=== PATIENT | male | born 1980 | race Caucasian/White ===

== ENCOUNTER 2016-05-30 18:42 | Emergency (ER) | payer OTHER ==
[~2016-05-30] VITALS: Ht 172.7 cm; Wt 90.7 kg
[~2016-05-30 18:42] MED LIST: IBUPROFEN800 M1 PO
[2016-05-30 19:25] LABS: ABSOLUTE BASOPHIL COUNT 0 /CUMM (0.0-0.2); ABSOLUTE EOSINOPHIL COUNT 0.1 /CUMM (0.0-0.7); ABSOLUTE GRANULOCYTE CT 7.6 /CUMM (1.4-6.5); ABSOLUTE LYMPH COUNT 3.1 /CUMM (1.2-3.4); ABSOLUTE MONOCYTE COUNT 0.6 /CUMM (0.10-0.60); BASOPHIL % 0.4 % (0.0-2.0); EOSINOPHIL % 1.1 % (0-5); HEMATOCRIT 40.9 % (42-52); MEAN CORPUSCULAR HGB 29.9 PG (27.0-31.0); MEAN CORPUSCULAR HGB CONC 33.2 G/DL (33.0-37.0); MEAN PLATELET VOLUME 7.9 FL (7.4-10.4); PLATELET COUNT 306 /CUMM (130-400); RBC DISTRIBUTION WIDTH 12.5 % (11.5-14.5); RED BLOOD CELL CT 4.54 /CUMM (4.70-6.10); WHITE BLOOD CELL COUNT 11.5 /CUMM (4.8-10.8)
--- NOTE | 2016-05-30 19:25 | ED HEADACHE COMPLAINT ---
History of Present Illness General Chief Complaint: Headache Stated Complaint: WARD Source: patient Exam Limitations: no limitations Vital Signs & Intake/Output Vital Signs & Intake/Output Vital Signs Date Time Temp Pulse Resp B/P Pulse O2 O2 Flow FiO2 Ox Delivery Rate 05/30 2026 96.2 91 18 107/57 97 Room Air Allergies Coded Allergies: NO KNOWN ALLERGIES (06/13/15) Reconcile Medications Aspirin (Aspirin*) 325 MG TABLET 3 TAB PO ONCE HEADACHE (Reported) Butalb/Acetaminophen/Caffeine (Fioricet 50-300-40 MG Capsule) 50 MG-300 MG-40 MG CAPSULE 1 TAB PO Q8 PRN MIGRAINE Triage Note: RECEIVED 35 YO MALE WITH HX OF MIGRAINES C/O SEVERE HEADACHE BEHIND EYES AND FOREHEAD, STARTED THIS AM WITH DIZZINESS, NAUSEA. PT TOOK 325 MG ASPIRIN PO ABOUT 2 HOURS AGO WITH NO EFFECT. Triage Nurses Notes Reviewed? yes HPI: This patient is a 35-year-old male with a past medical history including migraine headaches who presented to the emergency department today for evaluation of headache. The patient reported that the headache began this afternoon and has been constant since onset. The pain gets up to a 10 out of 10 , sharp, and located across his forehead. He reported that sometimes it radiates to behind both of his eyes. He reported that hurts to open his eyes and he is sensitive to light. No palliative factors. He tried taking 325 mg of aspirin without any effect. He reported that usually his migraine headaches are resolved with aspirin or Motrin. He reported that he was medication for his migraines as a child, but not recently. The patient denied any blurry vision or auras. He denied any fevers, chest pain, difficulty breathing, neck pain, abdominal pain, or vomiting. He did report nausea. Past History Travel History Traveled to [place] past 21 day No Medical History Any Pertinent Medical History? see below for history Neurological: migraine EENT: NONE Cardiovascular: NONE Respiratory: NONE Gastrointestinal: NONE Hepatic: NONE Renal: NONE Musculoskeletal: NONE Psychiatric: NONE Endocrine: NONE Surgical History Surgical History: N Psychosocial History What is your primary language Solomon Islander Tobacco Use: Never used Family History Hx Contributory? No Review of Systems Review of Systems Constitutional: Reports: no symptoms. Eyes: Reports: see HPI. Ears, Nose, Throat, Mouth: Reports: no symptoms. Respiratory: Reports: no symptoms. Cardiovascular: Reports: no symptoms. Gastrointestinal/Abdominal: Reports: see HPI. Genitourinary: Reports: no symptoms. Musculoskeletal: Reports: no symptoms. Skin: Reports: no symptoms. Neurological/Psychological: Reports: see HPI. Endocrine: Reports: no symptoms. All Other Systems: Reviewed and Negative Physical Exam Physical Exam Cranial Nerves: normal hearing, normal speech, PERRL Comments: Well-developed well-nourished person in mild distress HEENT: Normal EENT exam, head normocephalic/atraumatic, mild tenderness to palpation over the forehead. No temporal pain on palpation, moist mucous membranes PERRLA bilaterally. EOMI bilaterally Neck: Supple. No midline tenderness Back: Normal gait Cardiovascular: Regular rate and rhythm with no murmurs Respiratory: No respiratory distress. Speaking sentences Extremity: Normal and equal pulses Neuro: Alert oriented x3, cranial nerves II through XII grossly intact. No facial droop. No unilateral weakness. No aphasia Skin: No appreciable rash on exposed skin, skin is warm and dry. Psych: Mood and affect is normal Core Measures Severe Sepsis Present: No Septic Shock Present: No Progress Differential Diagnosis: carotid dissection, cav sinus thromb, cluster WARD, encephalitis, IC mass/tumor, intracranial Hem., migraine WARD, sinusitis, SSS thrombosis, subarach. Hem., tension WARD, temporal arteritis, TMJ syndrome, viral cephalgia Plan of Care: Orders Procedure Date/time Status [facility] SED RATE 05/30 1899 Active COMPREHENSIVE METABOLIC PANEL 05/30 1899 Complete CBC WITHOUT DIFFERENTIAL 05/30 1899 Active Current Medications Sig/Liza Start time Last Medication Dose Stop Time Status Admin Promethazine HCl 50 MG ONCE ONE 05/30 1899 CAN (Phenergen) 05/30 1900 Laboratory Tests 05/30/161913: Anion Gap 11, Estimated GFR > 60, BUN/Creatinine Ratio 18.8, Glucose 119 H, Calcium 10.1, Total Bilirubin 0.8, AST 30, ALT 44, Alkaline Phosphatase 62, Total Protein 7.5, Albumin 4.8, Globulin 2.7, Albumin/Globulin Ratio 1.8, CBC w Diff NO MAN DIFF REQ, RBC 4.54 L, MCV 90.0, MCH 29.9, RDW 12.5, MPV 7.9, Gran % 66.0, Lymphocytes % 27.0, Monocytes % 5.5, Eosinophils % 1.1, Basophils % 0.4, Absolute Granulocytes 7.6 H, Absolute Lymphocytes 3.1, Absolute Monocytes 0.6, Absolute Eosinophils 0.1, Absolute Basophils 0, PUBS MCHC 33.2, ESR Westergren Pending Diagnostic Imaging: Viewed by Me: CT Scan. Discussed w/RAD: CT Scan. Radiology Impression: PATIENT: WILBERT ROBERTS JR PRESENT AGE: 35 PATIENT ACCOUNT NO: [id number] : 82 LOCATION: [facility] ORDERING PHYSICIAN: ROBSON DUNN PA-C SERVICE DATE: 05/30/16 EXAM TYPE: CAT - CT HEAD WO IV CONTRAST EXAMINATION: CT HEAD WITHOUT CONTRAST CLINICAL INFORMATION: Intracranial hemorrhage. Mass. COMPARISON: None TECHNIQUE: Contiguous axial imaging was performed from the skull base to vertex without intravenous administration of contrast. DLP: 600 mGy-cm FINDINGS: There is no evidence of acute intracranial hemorrhage or territorial infarction. No abnormal mass effect or midline shift is seen. Wayne to white matter differentiation is well preserved. No extra-axial fluid collections are identified. The ventricles are normal in size. There is no abnormal attenuation within the brain parenchyma. The osseous structures and soft tissues are normal. There is mild mucosal thickening of the ethmoid sinuses. IMPRESSION: No acute intracranial pathology. No hemorrhage or mass DICTATED BY: SHIKHA TAYLOR MD DATE/TIME DICTATED:05/30/162001 BUSINESS ACCOUNT EXECUTIVE:JOSEPHINE DATE/TIME TRANSCRIBED:2001 CONFIDENTIAL, DO NOT COPY WITHOUT APPROPRIATE AUTHORIZATION. < Electronically signed in Other Vendor System> SIGNED BY: SHIKHA TAYLOR MD 05/30/162007 Comments: 05/30/2016 8:13:11 PM: I was at the patient's bedside for re-evaluation. Reported that pain is down to a 2 out of 10. Nausea has resolved. CT unremarkable. Departure Departure Disposition: HOME OR SELF CARE Condition: Stable Clinical Impression Primary Impression: Migraine Qualifiers: Migraine type: without aura Status migrainosus presence: without status migrainosus Intractability: not intractable Qualified Code: G43.009 - Migraine without aura, not intractable, without status migrainosus Referrals: BETO CODY MD PATIENT HAS NO PRIMARY CARE DR (PCP/Family) Additional Instructions: Take medication for migraine as prescribed. Rest and be sure to stay hydrated. Please follow-up with the neurologist whose information has been provided to you in this packet for any persistent symptoms. Return for any worsening symptoms or concerns. Departure Forms: Customer Survey General Discharge Information Prescriptions: Current Visit Scripts Butalb/Acetaminophen/Caffeine (Fioricet 50-300-40 MG Capsule) 1 TAB PO Q8 PRN MIGRAINE #10 TAB
[2016-05-30] MEDS ORDERED: ASPIRIN325 M2 PO (19:46)
--- NOTE | 2016-05-30 20:08 | CT SCAN REPORT ---
EXAMINATION: CT HEAD WITHOUT CONTRAST CLINICAL INFORMATION: Intracranial hemorrhage. Mass. COMPARISON: None TECHNIQUE: Contiguous axial imaging was performed from the skull base to vertex without intravenous administration of contrast. DLP: 600 mGy-cm FINDINGS: There is no evidence of acute intracranial hemorrhage or territorial infarction. No abnormal mass effect or midline shift is seen. Wayne to white matter differentiation is well preserved. No extra-axial fluid collections are identified. The ventricles are normal in size. There is no abnormal attenuation within the brain parenchyma. The osseous structures and soft tissues are normal. There is mild mucosal thickening of the ethmoid sinuses. IMPRESSION: No acute intracranial pathology. No hemorrhage or mass
[2016-05-30 20:27] VITALS: BP 107/57
[2016-05-30] MEDS ORDERED: FIORICET 50-301 EACH PO (20:56)
== END 2016-05-30 21:11 ==
LOC: ERH 18:42
PROVIDERS: Physician Assistant
DX: G43.909 Migraine, unspecified, not intractable, without status migrainosus (principal)
CPT/HCPCS: 96374; 96375; J1200; J1885; J2550

== ENCOUNTER 2016-07-04 16:43 | Emergency (ER) | payer OTHER ==
[~2016-07-04] VITALS: Ht 170.2 cm; Wt 90.7 kg
[~2016-07-04 16:43] MED LIST changes: +ASPIRIN325 M2 PO; +FIORICET 50-301 EACH PO
[2016-07-04 17:20] VITALS: BP 144/91
[2016-07-04] MEDS ORDERED: MULTI-DAY VITA1 EACH PO (19:09)
--- NOTE | 2016-07-04 19:17 | ED UPPER/LOWER EXTREMITY COMPL ---
History of Present Illness General Chief Complaint: Hand or Wrist Injury Stated Complaint: BILAATERAL WRIST PAIN Source: patient Exam Limitations: no limitations Vital Signs & Intake/Output Vital Signs & Intake/Output Vital Signs Date Time Temp Pulse Resp B/P B/P Pulse O2 O2 Flow FiO2 Mean Ox Delivery Rate 07/04 1720 98.4 74 16 144/91 98 Room Air Allergies Coded Allergies: NO KNOWN ALLERGIES (06/13/15) Reconcile Medications Ketorolac Tromethamine 10 MG TABLET 1 TAB PO TID PRN PAIN RECEIVED IM IN ER Multivitamin (Multi-Day Vitamins) 1 EACH TABLET 1 TAB PO DAILY SUPPLEMENT ( Reported) Triage Note: TRIAGE: BILATERAL WRIST PAIN L>R SHOOTING IN NATURE, UNABLE TO MAKE A FIST. STATES HE TRIED TO REST IT THU AND THURSDAY AND TODAY AT WORK IT GOT MUCH WORSE. PT DRIVES TRUCKS AND LIFTS HEAVY ITEMS. DENIES INJURY. MEDICATED WITH MOTRIN IN TRIAGE. Triage Nurses Notes Reviewed? yes Onset: Gradual Duration: getting worse Timing: recent history Severity: severe Severity Numbers: 7 Method of Injury: unknown HPI: Patient is a 35-year-old male who presents to emergency room with a one week history of intermittent bilateral wrist pain where he denies any mechanism of injury he stated that this week wrist movements made worse however today he states that gripping now bothers his wrist. Patient denies any elbow pain paresthesia. 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 (BETO RITCHIE) Past History Travel History Traveled to [place] past 21 day No Medical History Any Pertinent Medical History? see below for history Neurological: migraine EENT: NONE Cardiovascular: NONE Respiratory: NONE Gastrointestinal: NONE Hepatic: NONE Renal: NONE Musculoskeletal: NONE Psychiatric: NONE Endocrine: NONE Surgical History Surgical History: non-contributory, N Psychosocial History What is your primary language Albanian Tobacco Use: Quit >30 days ago ETOH Use: denies use Illicit Drug Use: denies illicit drug use Family History Hx Contributory? No (BETO RITCHIE) Review of Systems Review of Systems Constitutional: Reports: no symptoms. EENTM: Reports: no symptoms. Respiratory: Reports: no symptoms. Cardiovascular: Reports: no symptoms. Gastrointestinal/Abdominal: Reports: no symptoms. Genitourinary: Reports: no symptoms. Musculoskeletal: Reports: see HPI, joint pain, muscle pain. Skin: Reports: no symptoms. Neurological/Psychological: Reports: no symptoms. Hematologic/Endocrine: Reports: no symptoms. Immunological: Reports: no symptoms. All Other Systems: Reviewed and Negative (BETO RITCHIE) Physical Exam Physical Exam General Appearance: no apparent distress, alert, comfortable Neurologic/Tendon: normal sensation, normal motor functions, normal tendon functions, responds to pain, no evidence tendon injury, no pulse deficit Skin: intact, normal color, warm/dry Comments: Well-developed well-nourished no apparent distress. HEENT: Atraumatic, extraocular motion intact Neck: Supple, no lymphadenopathy Back: Nontender Respiratory: No respiratory distress Extremities: Bilateral elbow-normal section nontender full active range of motion Bilateral wrist normal inspection generalized point tenderness noted decreased active range of motion noted Radial pulse +2 5/5 resisted range of motion with flexion extension of wrist with mild pain Right hand is nontender Right-left upper extremity dermatomes intact Negative Phalen sign Neuro: Alert and oriented x3 Psych: Mood affect normal, normal memory normal judgment. (BETO RITCHIE) Progress Differential Diagnosis: arterial insufficiency, compartment syndrome, contusion, dislocation, DVT, fracture, gout, septic arthritis, sprain, tendon injury Plan of Care: Orders Procedure Date/time Status Durable Medical Equipment 07/04 1937 Active Current Medications Sig/Liza Start time Last Medication Dose Stop Time Status Admin Ketorolac 30 MG ONCE ONE 07/04 1944 CAN Tromethamine 07/04 1945 (Toradol) Patient denies any mechanism of injury and there is no suspicion of fracture at this time in which no emergent orienting of x-rays for the patient currently. Patient has concerns of muscular strain of wrist in which he was put in bilateral wrist splints pre-and post-neurovascular was intact Patient was strongly advised to follow-up with discharge junctions and plan and he will comply (BETO RITCHIE) Departure Departure Disposition: HOME OR SELF CARE Condition: Stable Clinical Impression Primary Impression: Bilateral wrist pain Referrals: SARAH BEE,SUYAPA PATIENT HAS NO PRIMARY CARE DR (PCP/Family) Additional Instructions: As discussed begin icing the area directly 20 minutes every 2 hours. Begin the prescription and ketorolac for pain and inflammation. Begin using the wrist splint and taken move YOUR wrist without pain. If symptoms worsen return to emergency room. Prescriptions waiting a [facility] pharmacy. If no better in 5 days follow-up with orthopedic DR. SMITH Departure Forms: Customer Survey General Discharge Information Prescriptions: Current Visit Scripts Ketorolac Tromethamine 1 TAB PO TID PRN PAIN #15 TAB RECEIVED IM IN ER (RIZWAN SKINNER,BETO) PA/[employer] Co-Sign Statement Statement: ED Attending supervision documentation- [] I saw and evaluated the patient. I have also reviewed all the pertinent lab results and diagnostic results. I agree with the findings and the plan of care as documented in the PA's/[employer]'s documentation. [x] I have reviewed the ED Record and agree with the PA's/[employer]'s documentation. [] Additions or exceptions (if any) to the PAs/[employer]'s note and plan are summarized below: [] (MELISSA BEE,EMMA Mroa)
[2016-07-04] MEDS ORDERED: KETOROLAC TROME10 M1 PO (19:37)
== END 2016-07-04 20:02 ==
LOC: ERH 16:43
DX: M25.531 Pain in right wrist (principal); M25.532 Pain in left wrist
CPT/HCPCS: 96372; J1885

== ENCOUNTER 2017-04-29 16:44 | Emergency (ER) | payer OTHER ==
[~2017-04-29] VITALS: Ht 170.2 cm; Wt 90.7 kg
[~2017-04-29 16:44] MED LIST changes: +KETOROLAC TROME10 M1 PO; +MULTI-DAY VITA1 EACH PO
--- NOTE | 2017-04-29 18:15 | RADIOLOGY REPORT ---
EXAMINATION: 3 views of the left hand CLINICAL INFORMATION: Crush injury to the left fifth digit. COMPARISON: None available. FINDINGS: Possible nondisplaced fracture involving the distal aspect of the fifth distal phalangeal tuft, best seen on the oblique and frontal views. There is adjacent soft tissue swelling. No additional fractures. No radiopaque foreign bodies. IMPRESSION: Possible nondisplaced fracture involving the distal aspect of the fifth distal phalangeal tuft, best seen on the oblique and frontal views. There is adjacent soft tissue swelling.
--- NOTE | 2017-04-29 18:46 | ED HAND/WRIST INJURY COMPLAINT ---
History of Present Illness General Chief Complaint: Hand or Wrist Injury Stated Complaint: L PINKY INJURY Source: patient Exam Limitations: no limitations Vital Signs & Intake/Output Vital Signs & Intake/Output Vital Signs Date Time Temp Pulse Resp B/P B/P Pulse O2 O2 Flow FiO2 Mean Ox Delivery Rate 04/29 1653 98.6 67 18 146/97 98 Room Air Allergies Coded Allergies: NO KNOWN ALLERGIES (06/13/15) Reconcile Medications Cephalexin (Keflex) 500 MG CAPSULE 1 CAP PO TID CELLULITIS Ketorolac Tromethamine 10 MG TABLET 1 TAB PO TID PRN PAIN RECEIVED IM IN ER Multivitamin (Multi-Day Vitamins) 1 EACH TABLET 1 TAB PO DAILY SUPPLEMENT ( Reported) Triage Note: 36 YO MALE TO TRIAGE WITH INJURY TO PINKY ON L HAND. STATES HE WAS WORKING ON A BRIAN SYSTEM IN HIS CAR WHEN HIS FINGER GOT STUCK AND CRUSHED. NOTED WITH NAIL COMING OFF, BLEEDING CONTROLLED. UNSURE OF LAST TETANUS. Triage Nurses Notes Reviewed? yes Occurred: just prior to arrival Duration: hour(s): (2), constant, continues in ED Timing: single episode today Injury Environment: street Severity: mild, moderate Severity Numbers: 7 Pain/Injury Location: Left: 5th finger. Context: crush No Modifying Factors: none Associated Symptoms: swelling HPI: 36-year-old male with no past medical history presents evaluation of pain swelling in his left fifth digit. Patient states that the finger was crushed between 2 metal objects. The distal segment of the finger was infected. He does report damage to the nail. There was mild bleeding. He is up-to-date on tetanus. No numbness or tingling. Pain is worse with movement or touching the area. No other injuries. He rates pain as a 7 or 8 out of 10. No medicine for pain. (Carlos Eller) Past History Travel History Traveled to [place] past 21 day No Medical History Any Pertinent Medical History? see below for history Neurological: migraine EENT: NONE Cardiovascular: NONE Respiratory: NONE Gastrointestinal: NONE Hepatic: NONE Renal: NONE Musculoskeletal: NONE Psychiatric: NONE Endocrine: NONE Surgical History Surgical History: non-contributory, N Psychosocial History What is your primary language Maori Tobacco Use: Never used Family History Hx Contributory? No (Carlos Eller) Review of Systems Review of Systems Constitutional: Reports: no symptoms. EENTM: Reports: no symptoms. Respiratory: Reports: no symptoms. Cardiovascular: Reports: no symptoms. GI: Reports: no symptoms. Genitourinary: Reports: no symptoms. Musculoskeletal: Reports: joint pain, joint swelling. Skin: Reports: no symptoms. Neurological/Psychological: Reports: no symptoms. Hematologic/Endocrine: Reports: no symptoms. Immunologic/Allergic: Reports: no symptoms. All Other Systems: Reviewed and Negative (Carlos Eller) Physical Exam Physical Exam General Appearance: well developed/nourished, no apparent distress, alert, awake Head: atraumatic, normal appearance Eyes: Bilateral: normal appearance, EOMI. Ears, Nose, Throat: hearing grossly normal Neck: normal inspection, full range of motion Cardiovascular/Respiratory: no respiratory distress Elbow Left: normal range of motion, normal inspection Elbow Right: normal range of motion, normal inspection Forearm Left: normal range of motion, normal inspection Forearm Right: normal range of motion, normal inspection Wrist Left: normal range of motion, normal inspection Wrist Right: normal range of motion, normal inspection Hand Left: nail injury, evidence of injury, swelling, tender, 5th finger, the left fifth digit there is a crush injury to the distal segment. The nail has a horizontal crack running through the entire length of the nail. Minimal active bleeding. The area is tender to palpation. Range of motion of the distal segment is reduced. Neurovascular supply is intact. Full range of motion of the remaining fingers and segments. No subungual hematoma Hand Right: normal inspection, normal range of motion Neurologic/Tendon: normal sensation, normal motor functions, normal tendon functions, responds to pain, no evidence tendon injury, no pulse deficit Skin: intact, normal color, warm/dry (Carlos Eller) Progress Differential Diagnosis: contusion, dislocation, fracture, paronychia, sprain Plan of Care: Patient seen and evaluated. He suffered a crush injury to the distal segment of the left fifth digit. There is damage to the nail. No subungual hematoma or nail bed laceration appreciated. The area was cleaned with Betadine and sterile water. Xeroform dressing placed. Splint applied. Patient will be covered with cephalexin. He is up-to-date on tetanus. Keep the area clean and dry change dressing daily. Follow-up with primary care doctor/orthopedics for a wound check in 3 days. Discussed return precautions in detail. Patient appears well he agrees the plan. Diagnostic Imaging: Viewed by Me: Radiology Read. Discussed w/RAD: Radiology Read. Radiology Impression: PATIENT: WILBERT ROBERTS JR PRESENT AGE: 36 PATIENT ACCOUNT NO: [id number] : 82 LOCATION: [facility] ORDERING PHYSICIAN: Carlos SKINNER SERVICE DATE: 04/29/17 EXAM TYPE: RAD - XRY-HAND, LEFT EXAMINATION: 3 views of the left hand CLINICAL INFORMATION: Crush injury to the left fifth digit. COMPARISON: None available. FINDINGS: Possible nondisplaced fracture involving the distal aspect of the fifth distal phalangeal tuft, best seen on the oblique and frontal views. There is adjacent soft tissue swelling. No additional fractures. No radiopaque foreign bodies. IMPRESSION: Possible nondisplaced fracture involving the distal aspect of the fifth distal phalangeal tuft, best seen on the oblique and frontal views. There is adjacent soft tissue swelling. DICTATED BY: Radhames Mccabe MD DATE/TIME DICTATED:04/29/171808 CONTRACTS ATTORNEY:JOSEPHINE DATE/TIME TRANSCRIBED:1808 CONFIDENTIAL, DO NOT COPY WITHOUT APPROPRIATE AUTHORIZATION. < Electronically signed in Other Vendor System> SIGNED BY: Radhames Mccabe MD 04/29/171814 (Carlos Eller) Departure Departure Disposition: HOME OR SELF CARE Condition: Stable Clinical Impression Primary Impression: Finger fracture Qualifiers: Encounter type: initial encounter Finger: little finger Fracture type: open Phalanx: distal Fracture alignment: nondisplaced Laterality: left Qualified Code: S62.667B - Nondisplaced fracture of distal phalanx of left little finger, initial encounter for open fracture Referrals: Rashida BEE,Harpreet Lee (PCP/Family) Additional Instructions: Keep the area clean and dry. Tylenol ibuprofen for pain. Wear splint at all times. Change dressing once daily. Take antibiotics as directed for the full course. Follow-up in 3 days for a wound check. Return sooner with signs of infection like redness swelling discharge or pain. Departure Forms: Customer Survey General Discharge Information Prescriptions: Current Visit Scripts Cephalexin (Keflex) 1 CAP PO TID #21 CAP (Carlos Eller) PA/[employer]AL [employer]STATE INVESTOR Co-Sign Statement Statement: ED Attending supervision documentation- I saw and evaluated the patient. I have also reviewed all the pertinent lab results and diagnostic results. I agree with the findings and the plan of care as documented in the PA's/REAL ESTATE INVESTOR's documentation. x I have reviewed the ED Record and agree with the PA's/REAL ESTATE INVESTOR's documentation. [] Additions or exceptions (if any) to the PAs/REAL ESTATE INVESTOR's note and plan are summarized below: [] (Manjeet BEE,Jose) Procedures Splinting Location: left fifth finger Manual Alignment Performed: No Pre-Made Type: metal Splint: finger Splint Applied By: splint applied by me Pre-Proc Neuro Vasc Exam: normal Post-Proc Neuro Vasc Exam: normal (Carlos Eller)
[2017-04-29] MEDS ORDERED: KEFLEX500 M1 PO (18:49)
[2017-04-29 18:55] VITALS: BP 147/87
== END 2017-04-29 19:00 ==
LOC: ERH 16:44
DX: S62.637A Displaced fracture of distal phalanx of left little finger, initial encounter for closed fracture (principal); W23.0XXA Caught, crushed, jammed, or pinched between moving objects, initial encounter; Y92.9 Unspecified place or not applicable; Y93.9 Activity, unspecified
CPT/HCPCS: 73130-LT; 90471; 90714